=== PATIENT | male | born 1970 | race Two or more races ===

== ENCOUNTER 2025-07-19 18:41 | Emergency (ER) | payer MEDICAID ==
[~2025-07-19] VITALS: Ht 165.1 cm; Wt 86.3 kg
--- NOTE | 2025-07-19 19:22 | ED.PDOC ---
HPI Comments 55 y/o M, with PMHx of HTN presents to the ED for CC of high blood pressure. Patient states, he has had hypertensive blood pressure readings with associated intermittent nausea and headaches [id number] with symptoms now worsening in the last x3days. Patient reports, to have PMHx of HTN however, is non-compliant with medications and currently does not have a PCP. At this time patient denies active chest pain, vomiting, dizziness, faintness, or blurred vision. No other symptoms or modifying factors are present at this time. Chief Complaint: Chest Pain Time Seen by MD: 19:20 Reviewed Notes: Nurses Notes, Medications, Allergies Allergies: Coded Allergies: NO KNOWN ALLERGIES (Unverified , 07/19/25) Information Source: Patient Mode of Arrival: Ambulatory Severity: Moderate Timing: Months Duration: Since onset Prehospital treatment: None Onset: At Rest Cardiac Risk Factors: HTN PE Risk Factors: None History of: None Modifying Factors: Nothing Associated Signs and Symptoms: None Past Medical History PAST MEDICAL HISTORY: HTN Surgical History: Denies all surgeries Family History Family History: Unknown Social History Smoker: Non-Smoker Alcohol: Denies ETOH Use Drugs: Denies Drug Use Lives In: Home Constitutional: denies: chills, diaphoresis, fatigue, fever, malaise, sweats, weakness, others EENTM: denies: blurred vision, double vision, ear bleeding, ear discharge, ear drainage, ear pain, ear ringing, eye pain, eye redness, hearing loss, mouth pain, mouth swelling, nasal discharge, nose bleeding, nose congestion, nose pain, photophobia, tearing, throat pain, throat swelling, voice changes, others Respiratory: denies: cough, hemoptysis, orthopnea, SOB at rest, shortness of breath, SOB with excertion, stridor, wheezing, others Cardiovascular: denies: chest pain, dizzy spells, diaphoresis, Dyspnea on exertion, edema, irregular heart beat, left arm pain, lightheadedness, palpitations, PND, syncope, others Gastrointestinal: reports: nausea; denies: abdomen distended, abdominal pain, blood streaked bowels, constipated, diarrhea, dysphagia, difficulty swallowing, hematemesis, melena, poor appetite, poor fluid intake, rectal bleeding, rectal pain, vomiting, others Genitourinary: denies: burning, dysuria, flank pain, frequency, hematuria, incontinence, penile discharge, penile sore, pain, testicle pain, testicle swelling, urgency, others Neurological: reports: headache; denies: dizziness, fainting, left sided numbne ss, left sided weakness, numbness, paresthesia, pre-existing deficit, right sided numbness, right sided weakness, seizure, speech problems, tingling, tremors, weakness, others Musculoskeletal: denies: back pain, gout, joint pain, joint swelling, muscle pain, muscle stiffness, neck pain, others Integumetry: denies: bruises, change in color, change in hair/nails, dryness, laceration, lesions, lumps, rash, wounds, others Allergic/Immunocompromised: denies: Difficulty Healing, Frequent Infections, Hives, Itching, others Hematologic/Lymphatic: denies: anemia, blood clots, easy bleeding, easy bruising, swollen glands, others Endocrine: denies: excessive hunger, excessive sweating, excessive thirst, excessive urination, flushing, intolerance to cold, intolerance to heat, unexplained weight gain, unexplained weight loss, others Psychiatric: denies: anxiety, bipolar disorder, depression, hopeless, panic disorder, schizophrenia, sleepless, suicidal, others All Other Systems: Reviewed and Negative Physical Exam General Appearance: No Apparent Distress, Normal HEENT: Normal ENT Inspection, Pharynx Normal Neck: Full Range of Motion, Non-Tender, Normal, Normal Inspection Respiratory: Chest Non-Tender, Lungs Clear, No Accessory Muscle Use, No Respiratory Distress, Normal Breath Sounds Cardiovascular: No Edema, No Murmur, No Gallop, Normal Peripheral Pulses, Regular Rate/Rhythm Breast Exam: Deferred Gastrointestinal: No Organomegaly, Non Tender, No Pulsatile Mass, Normal Bowel Sounds, Soft Genitalia: Deferred Pelvic: Deferred Rectal: Deferred Extremities: No calf tenderness, Normal capillary refill, Normal inspection, Normal range of motion, Non-tender, No pedal edema Musculoskeletal : Apperance: Normal Neurologic: Alert, credit and collection manager II-XII nml as Tested, No Motor Deficits, Normal Affect, Normal Mood, No Sensory Deficits Cerebellar Function: Normal Reflexes: Normal Skin: Dry, Normal Color, Warm Lymphatic: No Adenopathy EKG EKG : Pulse Rate (adult): 84 [place]: Normal Cardiac Rhythm: NSR Hypertrophy: None ST: Normal Comments +TWI in II, V4-V6 Was a procedure done? Was a procedure done?: No CP Differential Dx Differential Diagnosis: PVC's, Renal Failure, Sinus Tachycardia Differential Diagnosis: HTN Essential, HTN Accelerated X-Ray, Labs, Meds, VS Vital Signs Date Time Temp Pulse Resp B/P (MAP) Pulse Ox O2 Delivery O2 Flow Rate FiO2 07/19/25 20:16 73 07/19/25 20:04 84 07/19/25 18:50 84 07/19/25 18:45 98.0 88 17 175/90 96 98.0 Lab Test 07/19/25 19:50 07/19/25 19:05 Range/Units Troponin I High Sensitivity Pending 8 </=54 ng/L White Blood Count 7.5 4.4-10.8 10^3/uL Red Blood Count 5.30 4.5-5.90 10^6/uL Hemoglobin 16.3 13.5-17.5 g/dL Hematocrit 47.6 41.0-53.0 % Mean Corpuscular Volume 89.7 80.0-100.0 fL Mean Corpuscular Hemoglobin 30.7 28.0-32.0 pg Mean Corpuscular Hemoglobin Concent 34.3 32.0-36.0 g/dL Red Cell Distribution Width 13.5 11.8-14.3 % Platelet Count 182 140-450 10^3/uL Mean Platelet Volume 8.9 6.9-10.8 fL Neutrophils (%) (Auto) 65.9 37.0-80.0 % Lymphocytes (%) (Auto) 24.7 10.0-50.0 % Monocytes (%) (Auto) 7.9 0.0-12.0 % Eosinophils (%) (Auto) 1.1 0.0-7.0 % Basophils (%) (Auto) 0.4 0.0-2.0 % Neutrophils # (Auto) 4.9 1.6-8.6 10 ^3/uL Lymphocytes # (Auto) 1.8 0.4-5.4 10 ^3/uL Monocytes # (Auto) 0.6 0-1.3 10 ^3/uL Eosinophils # (Auto) 0.1 0-0.8 10 ^3/uL Basophils # (Auto) 0 0-0.2 10 ^3/uL Nucleated Red Blood Cells 0.0 % Sodium Level 141 136-145 mmol/L Potassium Level 3.8 3.5-5.1 mmol/L Chloride Level 102 98-107 mmol/L Carbon Dioxide Level 28 20-31 mmol/L Anion Gap 11 5-15 Blood Urea Nitrogen 10 9-23 mg/dL Creatinine 0.85 0.700-1.30 mg/dL Glomerular Filtration Rate Calc 102 >90 mL/min BUN/Creatinine Ratio 11.8 10.0-20.0 Serum Glucose 104 74-106 mg/dL Calcium Level 9.2 8.7-10.4 mg/dL [place] [id number] Ph: [phone] DIAGNOSTIC IMAGING Diagnostic Imaging Report : [id number] Signed PATIENT: FEDERICO VALENCIACCT: [id number] UNIT: [id number] : 1970 LOC: ER ROOM / BED: / AGE / SEX: 55 / M ADM STATUS: REG ER SERVICE 44 ORDERING PHYSICIAN: BARBER PIZARRO MD PROCEDURE(s): CXR1 - CHEST XRAY 1 VIEW REASON: CP ORDER NUMBER(s): [id number], ACCESSION NUMBER(s): [id number] CLINICAL HISTORY: CP TECHNIQUE: Single view of the chest was obtained. COMPARISON: None FINDINGS: The heart size and pulmonary vasculature are normal. The lungs are clear. IMPRESSION: NO ACUTE CARDIOPULMONARY PROCESS. ATED BY: NOHEMY HANNAH MD DICTATED DATE/TIME: 07/19/251916 SIGNED BY: NOHEMY HANNAH MD SIGNED DATE/TIME: 07/19/251916 CC: Time of 1ST Reevaluation: 19:50 Reevaluation 1ST: Unchanged Time of 2ND Reevaluation: 19:59 Reevaluation 2ND: Improved Patient Education/Counseling: Diagnosis, Treatment Family Education/Counseling: Diagnosis, Treatment SEPSIS Sepsis Screen Date sepsis recognized/suspect: Jul 19, 2025 Time Sepsis recognized/suspect: 1844 Recent Procedure: No On Antibiotic Therapy: No Respiratory Rate >20: No Heart Rate >90: No Temp<36 C (96.8 F) or >38.3 C: No SBP <90 or MAP <65 mmHG: No New Acute Mental Status Change: No Is the patient on CPAP, BIPAP,: No Physician Orders Troponin-I Hs (07/19/25 19:45) Troponin-I Hs (07/19/25 21:45) Electrocardigram (07/19/25 18:45) Electrocardigram (07/19/25 19:45) Electrocardigram (07/19/25 21:45) Chest Xray 1 View (07/19/25 18:45) Vital Signs Date Time Temp Pulse Resp B/P (MAP) Pulse Ox O2 Delivery O2 Flow Rate FiO2 07/19/25 20:16 73 07/19/25 20:04 84 07/19/25 18:50 84 07/19/25 18:45 98.0 88 17 175/90 96 98.0 Laboratory Tests Test 07/19/25 19:05 White Blood Count 7.5 10^3/uL (4.4-10.8) Departure 1 Departure Time of Disposition: 20:00 (55-year-old male with past medical history of hypertension (medication noncompliance) presenting for recurrent symptoms over the past couple of months. Patient is in no acute distress at this time. More so concerned because he does not have a primary care doctor. Blood pressure is elevated with a systolic blood pressure in the 170s here. Suspect that this is likely due to longstanding uncontrolled hypertension for medication noncompliance. Gets intermittent headaches, however, this time has a normal n eurologic examination. Given the recurrence of symptoms over 2 months does not seem concerning for acute CVA or other acute intracranial process, does not warrant any CT imaging of the head. Patient not currently reporting a chest discomfort, however, screening EKG was obtained from triage which shows no evidence of any acute ischemia, however, does show some chronic changes. Ca rdiac markers today within normal limits. Chest x-ray with no evidence of any acute cardiopulmonary process. Given uncontrolled hypertension consider possible abnormalities or kidney dysfunction. CBC with no evidence of any critical leukocytosis or significant anemia. Metabolic panel shows no evidence of any acute electrolyte abnormalities. Patient was no evidence of acute end- organ damage. Patient written for 1 time dose of oral amlodipine, hydralazine for his elevated blood pressure. Written for Tylenol, Reglan for his headache. Do not expect rapid normalization of the high blood pressure given longstanding uncontrolled history of hypertension. Patient will be discharged with a prescription for amlodipine. However, stressed importance of following up with the primary care doctor regularly regarding his HTN.) Impression: Primary Impression: Headache Additional Impression: Uncontrolled hypertension Disposition: HOME / SELF CARE / HOMELESS Condition: Stable e-Prescriptions Amlodipine Besylate (Amlodipine Besylate) 5 Mg Tab 1 TAB PO DAILY for 30 Days, #30 TAB 5 Refills Prov: JOSÉ MIGUEL LYN MD 07/19/25 Discharged With: Self Critical Care Note Critical Care Time?: No Stability Stability form required: No Heart Score Heart Score: Heart Score Response (Comments) Value History Slightly Suspicious 0 EKG N/A 0 Age 45-64 1 Risk Factors 1 or 2 risk factors 1 Troponin N/A 0 Total 2 I personally scribed for JOSÉ MIGUEL LYN MD ([email or web address]) on 07/19/25 at 19:21. E lectronically submitted by Marci Farias ([email or web address]). I personally scribed for JOSÉ MIGUEL LYN MD ([email or web address]) on 07/19/25 at 19:22. El ectronically submitted by Marci Farias ([email or web address]). I personally scribed for JOSÉ MIGUEL LYN MD ([email or web address]) on 07/19/25 at 19:40. Nicci ctronically submitted by Marci Farias ([email or web address]). JOSÉ MIGUEL LYN MD Jul 19, 2025 19:21
[2025-07-19 19:26] LABS: Hematocrit 47.6 % (41.0-53.0); Hemoglobin 16.3 g/dL (13.5-17.5); Mean Corpuscular Hemoglobin 30.7 pg (28.0-32.0); Mean Corpuscular Volume 89.7 fL (80.0-100.0); Nucleated Red Blood Cells % 0.0 %
[2025-07-19 19:31] LABS: Chloride 102 mmol/L (98-107); Potassium 3.8 mmol/L (3.5-5.1); Sodium 141 mmol/L (136-145)
[2025-07-19 19:32] LABS: Anion Gap 11 (5-15); Carbon Dioxide 28 mmol/L (20-31)
[2025-07-19 19:33] LABS: Calcium 9.2 mg/dL (8.7-10.4)
[2025-07-19 19:37] LABS: BUN/Creatinine Ratio 11.8 (10.0-20.0); Blood Urea Nitrogen 10 mg/dL (9-23); Glucose 104 mg/dL (74-106)
[2025-07-19] MEDS ORDERED: ACETAMINOPHEN 325 MG TAB PO ONE (19:45)
[2025-07-19] MEDS ORDERED: AMLO1TAB22 PO (20:45)
[2025-07-19] MEDS: METOCLOPRAMIDE HCL 10 MG TAB PO ONE (21:10)
[2025-07-19] MEDS: ACETAMINOPHEN 500 MG TAB or CAP PO ONE (21:12)
[2025-07-19 22:01] VITALS: BP 162/95; PULSE 76; RESP 16; TEMP 98.3; O2SAT 98
--- NOTE | 2025-07-20 10:17 | ECG ---
[facility] Test Date: 2025-07-19 Test Time: 18:50:31 Pat Name: FEDERICO WASSERMAN Department: [facility] ED Patient ID: [facility]-[id number] Room: Gender: M [employer]er: MYRNA : 1970 Requested By: EMERGENCY EMERGENCY Order Number: [id number] Reading MD: Manuel Javed Measurements Intervals [place] Rate: 84 P: 22 UT: 141 QRS: 35 QRSD: 147 T: 24 QT: 351 QTc: 415 Interpretive Statements Sinus rhythm Right bundle branch block Abnormal T, consider ischemia, lateral leads Electronically Signed On 07-22-2025 15:42:07 PST by Manuel Javed Please click the below link to view image of tracing.
--- NOTE | 2025-07-20 12:00 | ECG ---
[facility] Test Date: 2025-07-19 Test Time: 20:16:14 Pat Name: FEDERICO WASSERMAN Department: Room: Gender: M Certified Addiction Counselor: SEAN : 1970 Requested By: EMERGENCY EMERGENCY Order Number: [id number] Reading MD: Manuel Javed Measurements Intervals [place] Rate: 73 P: 24 NM: 146 QRS: 25 QRSD: 155 T: 23 QT: 390 QTc: 430 Interpretive Statements Sinus rhythm Right bundle branch block LVH with IVCD and secondary repol abnrm Electronically Signed On 07-22-2025 15:42:11 PST by Manuel Javed Please click the below link to view image of tracing.
== END 2025-07-19 22:03 | disposition home or self-care (01) ==
LOC: ER 18:41
DX: R51.9 Headache, unspecified (principal); I10 Essential (primary) hypertension; Z79.899 Other long term (current) drug therapy
CPT/HCPCS: 36415; 71045; 80048; 84484; 85025; 93005; 99285; J8597